=== PATIENT | male | born 1970 ===

== ENCOUNTER 2018-02-02 07:52 | Emergency (ER) | payer OTHER ==
[2018-02-02 08:14] VITALS: O2SAT 95
[2018-02-02 08:44] LABS: BASO % 0.3 % (0.0-2.0); EOS # 0.1 K/uL (0.0-0.7); EOS % 0.6 % (0.0-4.0); HEMOGLOBIN 15.3 g/dL (12.0-18.0); LYMPH # 1.2 K/uL (1.0-4.3); LYMPH % 9.6 % (20.0-40.0); MEAN CELL VOLUME 91.2 fL (80.0-94.0); MEAN CORPUSCULAR HEMOGLOBIN 31.6 pg (27.0-31.0); MEAN CORPUSCULAR HGB CONC 34.7 g/dL (33.0-37.0); MEAN PLATELET VOLUME 7.5 fL (7.2-11.7); MONO # 0.6 K/uL (0.0-0.8); MONO % 4.9 % (0.0-10.0); NEUT # 10.7 K/uL (1.8-7.0); NEUT % 84.6 % (50.0-75.0); NRBC % 0.1 % (0.0-2.0); PLATELET COUNT 238 K/uL (130-400); RBC 4.85 Mil/uL (4.40-5.90); RED CELL DISTRIBUTION WIDTH 13.6 % (11.5-14.5); WHITE BLOOD COUNT 12.6 K/uL (4.8-10.8)
[2018-02-02 08:59] LABS: ALB/GLOB RATIO 1.6 (1.0-2.1); ALT/SGPT 32 U/L (21-72); AST/SGOT 27 U/L (17-59); BLOOD UREA NITROGEN 12 mg/dL (9-20); GFR AFRICAN-AMERICAN > 60; GFR NON-AFRICAN AMERICAN > 60
[2018-02-02 09:09] LABS: B-TYPE NATRIURETIC PEPTIDE 47.9 pg/mL (0-450)
[2018-02-02 09:22] LABS: EOSINOPHIL 1 % (0-4); LYMPHOCYTE 7 % (20-40); MONOCYTE 3 % (0-10); NEUTROPHIL 89 % (50-75); PLATELET ESTIMATE NORMAL (NORMAL); TOTAL CELLS COUNTED 100
--- NOTE | 2018-02-02 09:23 | C.PDOC ---
History Of Present Illness 47 y/o male, with no significant past medical history, recently evicted from place of stay, presents to ED c/o generalized weakness, upper and lower back pain. Denies injury, trauma, abdominal pain, n/v/d, urinary symptoms, fever, chest pain, or shortness of breath. Time Seen by Provider: 02/02/18 07:59 Chief Complaint (Nursing): Weakness/Neurological Deficit History Per: Patient History/Exam Limitations: no limitations Past Medical History Reviewed: Historical Data, Nursing Documentation, Vital Signs Vital Signs: Last Vital Signs Temp 97.8 F 02/02/18 09:26 Pulse 89 02/02/18 09:26 Resp 16 02/02/18 09:26 BP 111/71 02/02/18 09:26 Pulse Ox 95 02/02/18 13:18 - Medical History PMH: Depression Family History: States: Unknown Family Hx - Social History Hx Alcohol Use: No Hx Substance Use: No - Immunization History Hx Tetanus Toxoid Vaccination: No Hx Influenza Vaccination: No Hx Pneumococcal Vaccination: No Review Of Systems Except As Marked, All Systems Reviewed And Found Negative. Constitutional: Positive for: Weakness. Negative for: Fever, Chills Cardiovascular: Negative for: Chest Pain, Palpitations Respiratory: Negative for: Cough, Shortness of Breath Gastrointestinal: Negative for: Nausea, Vomiting, Abdominal Pain, Diarrhea Genitourinary: Negative for: Dysuria, Frequency, Incontinence, Hematuria Musculoskeletal: Positive for: Back Pain. Negative for: Neck Pain Neurological: Negative for: Weakness, Numbness, Headache, Dizziness Physical Exam - Physical Exam Appears: Non-toxic, No Acute Distress Skin: Normal Color, Warm, Dry Head: Atraumatic, Normacephalic Eye(s): bilateral: Normal Inspection Oral Mucosa: Moist Neck: Normal ROM, No Midline Cervical Tenderness, Paracervical Tenderness, Supple Cardiovascular: Rhythm Regular, No Murmur Respiratory: Normal Breath Sounds, No Rales, No Rhonchi, No Wheezing Gastrointestinal/Abdominal: Soft, No Tenderness, Other ((+)surgical scar to abdomen) Back: No CVA Tenderness, No Vertebral Tenderness, Paraspinal Tenderness ( paralumbar), No Straight Leg Raising Extremity: Normal ROM, No Deformity Pulses: Left Dorsalis Pedis: Normal, Right Dorsalis Pedis: Normal Neurological/Psych: Oriented x3, Normal Speech ED Course And Treatment - Laboratory Results Result Diagrams: 02/02/18 08:41 02/02/18 08:41 ECG: Interpreted By Me, Viewed By Me ECG Rhythm: Sinus Rhythm ECG Interpretation: No Acute Changes Interpretation Of ECG: Normal intervals, normal axis. No ST/T wave changes. Rate From EC O2 Sat by Pulse Oximetry: 95 Pulse Ox Interpretation: Normal Medical Decision Making Medical Decision Making: Blood work, UA, CXR, EKG, LS spine, C-spine x-ray ordered and reviewed. Pt was given Toradol. Impression: Weakness in muscles, musculoskeletal pain patient resting comfortably, tolerating meal tray. will discharge home to follow up with medical clinic [facility] information provided. Disposition Counseled Patient/Family Regarding: Studies Performed, Diagnosis, Need For Followup, Rx Given - Disposition Referrals: [facility] [Outside] Disposition: HOME/ ROUTINE Disposition Time: 13:19 Condition: STABLE Additional Instructions: follow up with your doctor or medical clinic within 2 days call to make an appointment take medications as prescribed return to ER if symptoms worsens or progress Prescriptions: Naproxen [Naprosyn] 500 mg PO BID PRN #16 tab PRN Reason: Pain, Moderate (4-7) Instructions: Generalized Weakness (DC), Fatigue, Muscle and Bone Pain (DC), Weakness (ED) Forms: [facility] ([place]), General Discharge Instructions - Clinical Impression Clinical Impression: Weakness, Musculoskeletal back pain - Scribe Statement The provider has reviewed the documentation as recorded by the Scribe KP All medical record entries made by the Scribe were at my direction and personally dictated by me. I have reviewed the chart and agree that the record accurately reflects my personal performance of the history, physical exam, medical decision making, and the department course for this patient. I have also personally directed, reviewed, and agree with the discharge instructions and disposition.
--- NOTE | 2018-02-02 09:35 | RAD ---
Date of service: 02/02/2018 PROCEDURE: Cervical Spine Radiographs. HISTORY: Pain. COMPARISON: None. FINDINGS: BONES: There is dextroscoliosis in the lower cervical spine and levoscoliosis in the upper thoracic spine. There is normal alignment of the cervical vertebral bodies. There is normal cervical lordosis. Vertebral height is normal. Bone mineralization is normal. There is no acute fracture or traumatic anterior listhesis. The craniocervical junction is normal. The atlantoaxial joint normal. DISC SPACES: There is mild degenerative anterior spurring in the vertebral bodies. The disc heights are maintained. SOFT TISSUES: Normal. No prevertebral soft tissue swelling. OTHER FINDINGS: None. IMPRESSION: Yasmani dextroscoliosis in the lower cervical spine and levoscoliosis in the upper thoracic spine. No acute fracture or traumatic anterior listhesis. Mild degenerative spurring in the cervical vertebral bodies.
--- NOTE | 2018-02-02 09:38 | RAD ---
Date of service: 02/02/2018 PROCEDURE: Radiographs of the Lumbar Spine. HISTORY: Back pain COMPARISON: No prior. FINDINGS: BONES: There is normal alignment of the lumbar vertebral bodies. There is normal lumbar lordosis. There is no acute fracture, spondylolysis or spondylolisthesis. Bone mineralization is normal. The posterior elements of S1 are unfused. DISC SPACES: The disc heights are maintained. OTHER FINDINGS: The paraspinous soft tissues are normal. Both sacroiliac joints are normal. IMPRESSION: No acute fracture, spondylolysis or spondylolisthesis.
[2018-02-02 10:28] LABS: BARBITURATES, UR NEGATIVE (NEGATIVE); BENZODIAZEPINES, UR NEGATIVE (NEGATIVE); OPIATES, UR NEGATIVE (NEGATIVE); PHENCYCLIDINE, UR NEGATIVE (NEGATIVE)
[2018-02-02 11:26] LABS: SQUAMOUS EPITHIAL < 1 /hpf (0-5); URINE BACTERIA RARE (<OCC); URINE BILIRUBIN 1+ (NEGATIVE); URINE BLOOD NEGATIVE (NEGATIVE); URINE CLARITY Hazy (Clear); URINE COLOR Amber (YELLOW); URINE GLUCOSE (UA) NORMAL (Normal); URINE LEUKOCYTE ESTERASE NEG Leu/uL (Negative); URINE PROTEIN 1+ mg/dL (NEGATIVE)
[2018-02-02 13:26] VITALS: BP 105/64; PULSE 71; RESP 18; TEMP 97.9
== END 2018-02-02 13:32 | disposition home or self-care (01) ==
LOC: C.ER 07:52
DX: R53.1 Weakness (principal); M54.6 Pain in thoracic spine; M54.5 Low back pain
CPT/HCPCS: 71046; 72040; 72100; 80053; 80164; 80320; 80324; 80345; 80346; 80349; 80353; 80358; 80361; 81001; 82948; 83735; 83880; 83992; 84484; 85025; 93005; 96374; 99285; J1885

== ENCOUNTER 2018-02-02 14:46 | Emergency (ER) | payer OTHER ==
[2018-02-02 14:56] VITALS: RESP 16
--- NOTE | 2018-02-02 15:06 | C.PDOC ---
History Of Present Illness 47 y/o M p/w bizzare behavior. Patient recently discharged from this ED hours ago, evaluated for back pain, normal work up. Patient recently evicted. Patient states now that he has abdominal pain for years and his head is "captivated" and he has a small brain. He states that he hears voices telling him to "be the same" but that he can not. He denies SI or HI. Time Seen by Provider: 02/02/18 14:49 Chief Complaint (Nursing): Abdominal Pain Past Medical History Vital Signs: Last Vital Signs Temp 97.4 F L 02/02/18 14:54 Pulse 94 H 02/02/18 14:54 Resp 16 02/02/18 14:54 BP 120/89 02/02/18 14:54 Pulse Ox 100 02/02/18 15:06 - Medical History PMH: Depression Family History: States: Unknown Family Hx - Social History Hx Alcohol Use: No Hx Substance Use: No - Immunization History Hx Tetanus Toxoid Vaccination: No Hx Influenza Vaccination: No Hx Pneumococcal Vaccination: No Review Of Systems Review Of Systems: ROS cannot be obtained secondary to pt's inabilty to answer questions. Physical Exam - Physical Exam Additional Physical Exam Comments: Gen: NAD Head: NC/AT Eyes: PERRL ENT: MMM Neck: No midline tenderness Chest: No tenderness CV: Regular rate Lungs: CTA b/l Abd: Soft, NT, ND, no rebound or guarding Back: No midline tenderness Skin: No rash Extremities: FROM x4 Neuro: Alert ED Course And Treatment - Laboratory Results Result Diagrams: 02/02/18 15:30 02/02/18 15:32 O2 Sat by Pulse Oximetry: 100 Medical Decision Making Medical Decision Making: Patient evaluated by Crisis, cleared for discharge. Labs unremarkable. Disposition - Disposition Disposition: HOME/ ROUTINE Disposition Time: 16:35 Condition: STABLE Forms: [employer] (I[place]ic) - Clinical Impression Clinical Impression: Homeless
[2018-02-02 15:35] LABS: BASO % 0.5 % (0.0-2.0); EOS # 0.2 K/uL (0.0-0.7); EOS % 2.3 % (0.0-4.0); HEMOGLOBIN 15.3 g/dL (12.0-18.0); LYMPH # 1.7 K/uL (1.0-4.3); LYMPH % 20.5 % (20.0-40.0); MEAN CELL VOLUME 91.1 fL (80.0-94.0); MEAN CORPUSCULAR HEMOGLOBIN 31.9 pg (27.0-31.0); MEAN PLATELET VOLUME 7.5 fL (7.2-11.7); MONO # 0.5 K/uL (0.0-0.8); MONO % 5.5 % (0.0-10.0); NEUT # 5.9 K/uL (1.8-7.0); NEUT % 71.2 % (50.0-75.0); RBC 4.79 Mil/uL (4.40-5.90); RED CELL DISTRIBUTION WIDTH 13.6 % (11.5-14.5); WHITE BLOOD COUNT 8.3 K/uL (4.8-10.8)
[2018-02-02 16:18] LABS: BLOOD UREA NITROGEN 10 mg/dL (9-20); GFR AFRICAN-AMERICAN > 60; GFR NON-AFRICAN AMERICAN > 60
[2018-02-02 16:19] LABS: ALB/GLOB RATIO 1.6 (1.0-2.1); ALBUMIN 3.9 g/dL (3.5-5.0); CALCIUM 9.2 mg/dl (8.6-10.4)
[2018-02-02 16:22] LABS: ALT/SGPT 35 U/L (21-72); AST/SGOT 25 U/L (17-59)
[2018-02-02 20:58] VITALS: BP 154/83; PULSE 62; TEMP 98.5; O2SAT 96
== END 2018-02-02 21:15 | disposition home or self-care (01) ==
LOC: C.ER 14:46
DX: Z59.0 Homelessness (principal)

== ENCOUNTER 2018-02-26 00:14 | Emergency (ER) | payer OTHER ==
[2018-02-26 00:34] VITALS: RESP 20; O2SAT 97
--- NOTE | 2018-02-26 01:25 | C.PDOC ---
History Of Present Illness The patient presents to the ED requesting a place to sleep for the night. Patient denies any physical complaints at this time. Time Seen by Provider: 02/26/18 01:24 Chief Complaint (Nursing): Medical Clearance History Per: Patient History/Exam Limitations: no limitations Onset/Duration Of Symptoms: Hrs Current Symptoms Are (Timing): Still Present Severity: None Pain Scale Rating Of: 0 Recent travel outside of the [place]: No Additional History Per: Patient Past Medical History Reviewed: Historical Data, Nursing Documentation, Vital Signs Vital Signs: Last Vital Signs Temp 97.5 F L 02/26/18 05:25 Pulse 89 02/26/18 05:25 Resp 20 02/26/18 05:25 BP 138/66 02/26/18 05:25 Pulse Ox 97 02/26/18 05:53 - Medical History PMH: Depression, HTN Surgical History: No Surg Hx Family History: States: Unknown Family Hx - Social History Hx Alcohol Use: Yes Hx Substance Use: No - Immunization History Hx Tetanus Toxoid Vaccination: No Hx Influenza Vaccination: No Hx Pneumococcal Vaccination: No Review Of Systems Constitutional: Negative for: Fever, Chills Cardiovascular: Negative for: Chest Pain, Palpitations Respiratory: Negative for: Cough, Shortness of Breath Gastrointestinal: Negative for: Nausea, Vomiting, Abdominal Pain Skin: Negative for: Rash, Lesions, Jaundice, Bruising Neurological: Negative for: Weakness, Numbness Physical Exam - Physical Exam Appears: Non-toxic, No Acute Distress Skin: Warm, Dry Head: Normacephalic Eye(s): bilateral: Normal Inspection Oral Mucosa: Moist Neck: Supple Chest: Symmetrical, No Deformity Cardiovascular: Rhythm Regular Respiratory: No Accessory Muscle Use Extremity: Normal ROM Neurological/Psych: Oriented x3 ED Course And Treatment O2 Sat by Pulse Oximetry: 97 (on ) Pulse Ox Interpretation: Normal Disposition Counseled Patient/Family Regarding: Studies Performed, Diagnosis, Need For Followup - Disposition Referrals: [facility] [Outside] Disposition: HOME/ ROUTINE Disposition Time: 01:25 Condition: FAIR Forms: [facility] ([place]ian), General Discharge Instructions - Clinical Impression Clinical Impression: Medical assessment - Scribe Statement The provider has reviewed the documentation as recorded by the Scribe (Zuleyka Hagan) Provider Attestation: All medical record entries made by the Scribe were at my direction and personally dictated by me. I have reviewed the chart and agree that the record accurately reflects my personal performance of the history, physical exam, medical decision making, and the department course for this patient. I have also personally directed, reviewed, and agree with the discharge instructions and disposition.
[2018-02-26 05:26] VITALS: BP 138/66; PULSE 89; TEMP 97.5
== END 2018-02-26 05:26 | disposition home or self-care (01) ==
LOC: C.ER 00:14
DX: Z04.8 Encounter for examination and observation for other specified reasons (principal)